=== PATIENT | female | born 1990 ===

== ENCOUNTER 2019-04-14 10:47 | Inpatient (IN) ==
[2019-04-14] MEDS ORDERED: LACTATED RINGERS 500 ML IV PRN (11:08)
[2019-04-14] MEDS ORDERED: LACTATED RINGERS 250 ML IV ONE (11:08)
[2019-04-14] MEDS ORDERED: ONDANSETRON 4 MG/2 ML VIAL IV PRN (11:08)
[2019-04-14] MEDS ORDERED: DINOPROSTONE VAG GEL 10 MG SYRINGE VAG ONE (11:12)
[2019-04-14] MEDS: LACTATED RINGERS 1,000 ML IV SCH ×2 (11:28→21:24)
[2019-04-14 11:33] LABS: Basophils % 0.2 % (0.0-0.8); Eosinophils % 0.5 % (0.00-10.9); Hematocrit 34.7 VOL% (35.7-47.0); Immature Granulocytes % 0.6 %; Immature Granulocytes Absolute 0.05 #; Lymphocytes # 1.6 10*3/uL (1.4-4.0); Lymphocytes % 18.7 % (21.3-54.2); Mean Corpuscular HGB Conc 31.7 GM/DL (32-36); Mean Corpuscular Volume 90.4 FL (87-102); Mean Platelet Volume 10.3 FL (9.6-12.0); Monocytes % 5.7 % (1.7-12.7); Neutrophils % 74.3 % (38.7-73.9); Platelet Count 248 T/CUMM (130-400); Red Blood Count 3.84 MC/CUMM (3.8-5.5); Red Cell Distribution Width 14.7 % (9.3-17.3); White Blood Count 8.4 T/CUMM (4-12)
[2019-04-14 11:42] LABS: INR 0.8; PT Patient Result 9.1 SECS; Partial Thromboplastin Time 26.9 SECS (0-40)
[2019-04-14 11:56] LABS: Albumin 2.6 G/DL (3.4-5.0); Bilirubin,Direct 0.14 MG/DL (0.0-0.20); Bilirubin,Total 0.6 MG/DL (0.2-1.0); Calcium 8.8 MG/DL (8.5-10.1); Osmolality,Calculated 268.8 MOS/KG (273-304); Total Protein 7.4 G/DL (6.4-8.3); Uric Acid 3.5 MG/DL (2.6-6.0)
[2019-04-14] MEDS ORDERED: CLINDAMYCIN INJ 900 MG in PREMIX 1 EACH IV SCH (12:30)
[2019-04-14] MEDS: LABETALOL 100 MG TABLET PO SCH ×2 (12:56→21:29)
[2019-04-14] MEDS: CLINDAMYCIN INJ 900 MG in PREMIX 1 EACH IV SCH ×2 (14:43→21:29)
[2019-04-14] MEDS ORDERED: LACTATED RINGERS 1,000 ML IV ONE (18:17)
[2019-04-14] MEDS ORDERED: NALOXONE 0.4 MG/ML VIAL IV PRN (18:17)
[2019-04-14] MEDS ORDERED: FAMOTIDINE 20 MG/2 ML VIAL IV ONE (18:17)
[2019-04-14] MEDS ORDERED: diphenhydrAMINE 50 MG/1 ML VIAL IV PRN ×2 (18:17)
[2019-04-14] MEDS ORDERED: ePHEDrine 50 MG/ML AMP IV PRN (18:17)
[2019-04-14] MEDS ORDERED: CITRIC ACID/SODIUM CITRATE 30 ML UDCUP PO ONE (18:17)
[2019-04-14] MEDS ORDERED: BUTORPHANOL 1 MG/ML VIAL IV PRN (19:32)
[2019-04-15 01:20] LABS: Apearance,Urine CLEAR (Clear); Bacteria,Urine Occasional /HPF (Few); Bilirubin,Urine Negative (Negative); Blood, Urine Negative (Negative); Glucose,Urine (UA) Negative (Negative); Ketones,Urine Negative (Negative); Mucus,Urine Occasional /LPF (Occasional); Nitrite,Urine Negative (Negative); Protein,Urine Negative; RBC,Urine <1 /HPF (0-4); Squamous Epithelial Cell,Urine Occasional /HPF (0-10); Urine Color Yellow (Yellow); Urine Specific Gravity 1.006 (1.001-1.035); Urine Urobilinogen < 2.0 EU/DL (0.2-1.0); WBC,Urine 1 /HPF (0-6)
[2019-04-15] MEDS ORDERED: OXYTOCIN 30 UNIT in DEXTROSE 5% LACTATED RINGERS 1,000 ML IV PRN (02:41)
[2019-04-15] MEDS ORDERED: OXYTOCIN/LR 30 UNIT/1,000 ML BAG IV PRN (02:46)
[2019-04-15] MEDS ORDERED: OXYTOCIN/LR 20 UNIT/1,000 ML BAG IV SCH (03:00)
[2019-04-15] MEDS: CLINDAMYCIN INJ 900 MG in PREMIX 1 EACH IV SCH (05:45)
[2019-04-15] MEDS: fentaNYL 2 MCG/ROPIV 0.2% EPID 100 ML EPIDURAL SCH (07:23)
[2019-04-15] MEDS ORDERED: oxyCODONE/ACETAMINOPHEN 5-325 MG TABLET PO PRN ×2 (14:08)
[2019-04-15] MEDS ORDERED: WITCH HAZEL PADS 100/JAR TOP PRN (14:08)
[2019-04-15] MEDS ORDERED: BISACODYL 10 MG SUPP RECTAL PRN (14:08)
[2019-04-15] MEDS ORDERED: ONDANSETRON 4 MG/2 ML VIAL IV PRN (14:08)
[2019-04-15] MEDS ORDERED: BENZOCAINE 20%/MENTHOL 0.5% SPRAY 56 GM CAN TOP PRN (14:08)
[2019-04-15] MEDS ORDERED: RHO(D) IMMUNE GLOBULIN 300 MCG SYRINGE IM ONE (14:08)
[2019-04-15] MEDS ORDERED: OXYTOCIN/LR 20 UNIT/1,000 ML BAG IV ONE (14:08)
[2019-04-15] MEDS ORDERED: MEASLES/MUMPS/RUBELLA VACCINE 0.5 ML VIAL SUBCUT ONE (14:08)
[2019-04-15] MEDS ORDERED: LANOLIN 50% CREAM 0.3 OZ TUBE TOP PRN (14:08)
[2019-04-15] MEDS ORDERED: DIPH/TET/ACEL PERT BOOSTER VACCINE 0.5 ML VIAL IM ONE (14:08)
[2019-04-15] MEDS ORDERED: HYDROCORTISONE 2.5% RECTAL CREAM 30 GM TUBE TOP PRN (14:08)
[2019-04-15] MEDS ORDERED: ACETAMINOPHEN 325 MG TABLET PO PRN (14:08)
[2019-04-15] MEDS: IBUPROFEN 800 MG TABLET PO PRN (15:11)
[2019-04-15] MEDS: DOCUSATE SODIUM 100 MG CAPSULE PO SCH (20:26)
[2019-04-16] MEDS: IBUPROFEN 800 MG TABLET PO PRN ×3 (01:02→21:56)
[2019-04-16] MEDS: LACTATED RINGERS 1,000 ML IV SCH ×6 (05:34→05:38)
[2019-04-16] MEDS: CLINDAMYCIN INJ 900 MG in PREMIX 1 EACH IV SCH (05:35)
[2019-04-16] MEDS: fentaNYL 2 MCG/ROPIV 0.2% EPID 100 ML EPIDURAL SCH (05:36)
[2019-04-16] MEDS: LABETALOL 100 MG TABLET PO SCH (05:36)
[2019-04-16 05:52] LABS: Basophils % 0.3 % (0.0-0.8); Eosinophils # 0.1 10*3/uL (0.0-0.87); Hematocrit 30.6 VOL% (35.7-47.0); Hemoglobin 9.7 GM/DL (12.0-16.0); Immature Granulocytes % 0.4 %; Immature Granulocytes Absolute 0.03 #; Lymphocytes # 1.8 10*3/uL (1.4-4.0); Lymphocytes % 25.9 % (21.3-54.2); Mean Corpuscular HGB Conc 31.7 GM/DL (32-36); Mean Corpuscular Volume 91.1 FL (87-102); Mean Platelet Volume 10.7 FL (9.6-12.0); Monocytes % 6.8 % (1.7-12.7); Neutrophils % 65.6 % (38.7-73.9); Platelet Count 201 T/CUMM (130-400); Red Blood Count 3.36 MC/CUMM (3.8-5.5); Red Cell Distribution Width 14.6 % (9.3-17.3); White Blood Count 7.1 T/CUMM (4-12)
[2019-04-16] MEDS: DOCUSATE SODIUM 100 MG CAPSULE PO SCH ×2 (09:09→20:12)
[2019-04-16] MEDS: SERTRALINE 50 MG TABLET PO SCH (11:58)
[2019-04-17] MEDS: DOCUSATE SODIUM 100 MG CAPSULE PO SCH (09:23)
[2019-04-17] MEDS: SERTRALINE 50 MG TABLET PO SCH (09:23)
[2019-04-17 11:23] VITALS: BP 116/63
== END 2019-04-17 15:00 | disposition home or self-care (01) | DRG 807 ==
LOC: N.LDOUT 10:47 → N.LD 10:52 → N.OB 04-15 14:01
PROVIDERS: ADMIT Obstetrics & Gynecology; ATTEND Obstetrics & Gynecology